=== PATIENT | male | born 1960 | race American Indian/Alaskan Native ===

== ENCOUNTER 2019-01-08 13:05 | Emergency (ER) | payer SELFPAY ==
--- NOTE | 2019-01-08 13:21 | Emergency Department Report ---
ED CPR HPI - General Stated Complaint: CARDIAC ARREST Time Seen by Provider: 01/08/19 13:05 Source: RN/MD Mode of arrival: Stretcher Limitations: Altered Mental Status, Physical Limitation - History of Present Illness Initial Comments: Patient is a 58-year-old male that presents emergency room after collapsing at work. Patient is in a cardiac arrest. Patient collapsed witnessed by his coworkers and his coworker started CPR. The cords also connected the patient to an 80 and 2 shocks were advised and delivered at work. EMS then arrived to pick the patient up and continued CPR. Patient was supple more time by EMS and given 3 rounds of epi. Patient intubated by EMS and compressions done by EMS MD Complaint: stopped breathing, collapsed during activity -: minute(s) Place: work Bystander CPR Performed: Yes AED Applied by Bystander/Product Development Worker: Yes Shock Advised: Yes Number of Shocks Delivered: 2 Initial Findings in the Field: unresponsive, no respirations, no pulse ROSC in the Field: No Associated Injuries: No Treatments Prior to Arrival: intubation, BMV, chest compressions, defribrillated shocks # (1), epinephrine mgs #, other (lido) ED Review of Systems ROS: Stated complaint: CARDIAC ARREST Other details as noted in HPI Comment: Unobtainable due to pts medical conditions ED Past Medical Hx - Past Medical History Previous Medical History?: No - Surgical History Past Surgical History?: No - Family History Family history: no significant - Social History Smoking Status: Unknown if ever smoked Substance Use Type: None ED Physical Exam - General Limitations: Altered Mental Status, Physical Limitation General appearance: obtunded - Head Head exam: Present: atraumatic, normocephalic - Eye Eye exam: Present: other (pupils fixed and dilated) - ENT ENT exam: Present: normal exam, other (patient intubated and placement verified) - Neck Neck exam: Present: normal inspection - Respiratory Respiratory exam: Present: normal lung sounds bilaterally - Cardiovascular Cardiovascular Exam: Present: other (no cardiac activity noted. No pulse.) - GI/Abdominal GI/Abdominal exam: Present: soft - Rectal Rectal exam: Present: deferred - Extremities Exam Extremities exam: Present: normal inspection (left lower extremity IO noted) - Skin Skin exam: Present: warm, dry, intact (except for lower extremity IO site), normal color. Absent: rash ED Course - Reevaluation(s) Reevaluation #1: Patient arrive via EMS. Report received from EMS. EMS states the patient is a witnessed arrest at work. CPR started by bystanders. Patient was shot by an AED on scene. EMS and shocked again in route. Patient's had 3 rounds of epi. Patient intubated by EMS. Placement verified. Patient has bilateral breath sounds. Pupils are fixed and dilated. We will continue CPR 01/08/19 13:04 Reevaluation #2: Resuscitation efforts discontinued due to no signs of life. Patient's pupils are fixed and dilated. Patient has no pulse. No cardiac motion noted. Family meeting will be done once family arrived. 01/08/19 13:12 Reevaluation #3: Family meeting done. Family support given. 01/08/19 14:02 ED Medical Decision Making - Medical Decision Making Patient is a 58-year-old male that presents emergency room with complaints of cardiac arrest. Code ran in accordance with ACLS protocol and guidelines. Patient denies any signs of life. Resuscitation efforts were terminated. See code note. Family support given - Differential Diagnosis cardiac arrest Critical Care Time: Yes Critical care time in (mins) excluding proc time.: 35 Critical care attestation.: If time is entered above; I have spent that time in minutes in the direct care of this critically ill patient, excluding procedure time. Critical Care Time: 35 minutes ED Disposition Clinical Impression: Cardiac arrest Disposition: DC-20 Is pt being admited?: No Does the pt Need Aspirin: No Condition: Undetermined Time of Disposition: 14:40
[2019-01-08] MEDS ORDERED: SODIUM BICARB 8.4% 50 MEQ/50 ML SYRINGE IV ONE (21:24)
[2019-01-08] MEDS ORDERED: EPINEPHrine 1:10,000 1 MG/10 ML SYRINGE ONE (21:24)
== END 2019-01-08 14:00 ==
LOC: ED 13:05
DX: I46.9 Cardiac arrest, cause unspecified (principal)
CPT/HCPCS: 92950; 99291; J0171